=== PATIENT | female | born 1950 | race Caucasian/White ===

== ENCOUNTER 2018-02-05 19:28 | Emergency (ER) | payer MEDICARE ==
[2018-02-05 19:45] VITALS: BP 150/70; PULSE 84; RESP 17; TEMP 97.7; O2SAT 96
[2018-02-05] MEDS ORDERED: AMLO2.5T PO (20:11)
[2018-02-05] MEDS ORDERED: CETI-1 (20:11)
[2018-02-05] MEDS ORDERED: LEVO.075 PO (20:11)
--- NOTE | 2018-02-05 20:30 | PD ---
HPI Chief Complaint: Head Injury Time Seen by Provider: 20:26 Travel History International Travel<30 days: No Contact w/Intl Traveler<30days: No Traveled to known affect area: No History of Present Illness HPI The patient is a 67-year-old female that tripped and fell at 7:25 AM this morning and hit her right forehead. There was loss of consciousness and the patient has some nausea as well as a right frontal headache. She did not have the nausea with a headache before the fall. She denies any focal neurologic change. Her head was extended back with a fall and she has some mild neck pain on the upper part of her neck. She denies any radiation of pain, numbness or weakness down any of her extremities. She is not on any anticoagulant and her only medical problems are hypertension and hypothyroid. She recently had rods put in L4 and L5 by Dr. Hernandez on September 25. She does have some low back pain. PFSH Past Medical History Cancer: Yes (UTERINE) Cardiovascular Problems: Yes (HTN) Hypertension: Yes Immunizations Current: Yes Thyroid Disease: Yes Tetanus Vaccination: > 5 Years Influenza Vaccination: Yes ?: Not Past Surgical History Hysterectomy: Yes Oral Surgery: Yes Other Surgery: Yes ([facility] 09/25/17) Social History Alcohol Use: Yes (OCCASIONAL) Tobacco Use: No Substance Use: No Allergies-Medications (Allergen,Severity, Reaction): Coded Allergies: No Allergy Information Available (Unverified , 02/05/18) THINKS SHE MAY BE ALLERGIC TO SOME ANTIBIOTIC Reported Meds & Prescriptions Reported Meds & Active Scripts Active Reported Zyrtec (Cetirizine HCl) 10 Mg Tablet Amlodipine (Amlodipine Besylate) 2.5 Mg Tab 2.5 Mg PO DAILY Synthroid (Levothyroxine Sodium) 75 Mcg Tab 75 Mcg PO DAILY Review of Systems Except as stated in HPI: all other systems reviewed are Neg Physical Exam Narrative GENERAL: The patient is alert, oriented 3 in slight apparent distress with her mild headache. Her vital signs show blood pressure 150/70 but are otherwise normal. SKIN: Focused skin assessment warm/dry. There is a slight bruise without any associated bony deformity on the right forehead. HEAD: Raccoon eyes or dodge sign is present. There is no hemotympanum present. Normocephalic. EYES: Pupils equal and round. No scleral icterus. No injection or drainage. ENT: No nasal bleeding or discharge. Mucous membranes pink and moist. NECK: Trachea midline. No JVD. CARDIOVASCULAR: Regular rate and rhythm. No murmur appreciated. RESPIRATORY: No accessory muscle use. Clear to auscultation. Breath sounds equal bilaterally. GASTROINTESTINAL: Abdomen soft, non-tender, nondistended. Hepatic and splenic margins not palpable. MUSCULOSKELETAL: No obvious deformities. No clubbing. No cyanosis. No edema. NEUROLOGICAL: Awake and alert. No obvious cranial nerve deficits. Motor grossly within normal limits. Normal speech. PSYCHIATRIC: Appropriate mood and affect; insight and judgment normal. Data Data Last Documented VS Vital Signs Date Time Temp Pulse Resp B/P (MAP) Pulse Ox O2 Delivery O2 Flow Rate FiO2 02/05/18 20:12 Room Air 02/05/18 19:45 97.7 84 17 150/70 (96) [address] Brain W/O Iv Contrast(Rout) (02/05/18 20:30) Ct Cerv Spine W/O Contrast (02/05/18 20:30) Spine, Lumbar Comp W/Obliq (02/05/18 20:30) Ondansetron Odt (Zofran Odt) (02/05/18 20:45) Acetaminophen (Tylenol) (02/05/18 20:45) MDM Medical Decision Making Medical Screen Exam Complete: Yes Emergency Medical Condition: Yes Medical Record Reviewed: Yes Interpretation(s) The CT brain is negative noncontrast CT brain. The CT of the cervical spine shows no evidence of compression deformity or spondylolisthesis. The lumbar spine x-rays with obliques show no evidence of compression deformity or spondylolisthesis and intact hardware at L4-L5. Differential Diagnosis Concussion, skull fracture, intracranial bleed, fracture cervical spine, fracture lumbar spine, hardware disruption of lumbar spine, contusion forehead, cervical strain, lumbar strain Narrative Course The patient has a contusion of the forehead with mild lumbar strain and mild cervical strain. She also has a concussion. The patient lost consciousness, has some slight nausea and a slight headache. Impression: Concussion, contusion forehead, cervical strain, lumbar strain Plan: The patient be given Zofran ODT every 6 hours as needed for nausea and a 2 day work excuse. She should follow-up with her primary care physician next week. Diagnosis Primary Impression: Concussion Additional Impressions: Contusion of forehead Cervical strain Lumbar strain Additional Instructions: As we discussed, recovering from a concussion means to rest her brain. Avoid watching TV excessively, avoid excessive reading, avoid computer work if possible, avoid video games. Follow-up with your primary care physician next week. Take plain Tylenol for headache and the Zofran is 1 every 6 hours as needed for nausea. Med/Other Pt SpecificInfo: Prescription(s) given Scripts Ondansetron Odt (Zofran Odt) 4 Mg Tab 4 MG SL Q6HR Y for Nausea/Vomiting, #20 TAB 0 Refills Prov: Silverio Hatfield MD 02/05/18 Disposition: 01 DISCHARGE HOME Condition: Stable Silverio Hatfield MD Feb 05, 2018 20:30
[2018-02-05] MEDS ORDERED: ONDANSETRON ODT 4 MG TAB PO ONE (20:45)
[2018-02-05] MEDS ORDERED: ACETAMINOPHEN 325 MG TAB PO ONE (20:45)
--- NOTE | 2018-02-05 21:05 | RADRPT ---
EXAM DATE/TIME: 02/05/2018 20:45 [facility] COMPARISON: No previous studies available for comparison. INDICATIONS : Trauma, fall. Dizziness, cephalgia, nausea. RADIATION DOSE: 61.21 CTDIvol (mGy) MEDICAL HISTORY : None SURGICAL HISTORY : None. ENCOUNTER: Initial ACUITY: 1 day PAIN SCALE: 5/10 LOCATION: frontal cranial TECHNIQUE: Multiple contiguous axial images were obtained of the head. Using automated exposure control and adj ustment of the mA and/or kV according to patient size, radiation dose was kept as low as reasonably a chievable to obtain optimal diagnostic quality images. DICOM format image data is available electro nically for review and comparison. FINDINGS: CEREBRUM: The ventricles are normal for age. No evidence of midline shift, mass lesion, hemorrhage or acute in farction. No extra-axial fluid collections are seen. POSTERIOR FOSSA: The cerebellum and brainstem are intact. The 4th ventricle is midline. The cerebellopontine angle i s unremarkable. EXTRACRANIAL: The visualized portion of the orbits is intact. SKULL: The calvaria is intact. No evidence of skull fracture. CONCLUSION: 1. Negative noncontrast CT brain. Kevin West MD on February 05, 2018 at 21:03 Board Certified Radiologist. This report was verified electronically.
--- NOTE | 2018-02-05 21:07 | RADRPT ---
EXAM DATE/TIME: 02/05/2018 20:45 [facility] COMPARISON: No previous studies available for comparison. INDICATIONS : Trauma, fall. RADIATION DOSE: 25.01 CTDIvol (mGy) MEDICAL HISTORY : None SURGICAL HISTORY : None. ENCOUNTER: Initial ACUITY: 1 day PAIN SCALE: 4/10 LOCATION: neck TECHNIQUE: Volumetric scanning of the cervical spine was performed. Multiplanar reconstructions in the sagittal, coronal and oblique axial planes were performed. Using automated exposure control and adjustment o f the mA and/or kV according to patient size, radiation dose was kept as low as reasonably achievable to obtain optimal diagnostic quality images. DICOM format image data is available electronically f or review and comparison. FINDINGS: There is straightening of the upper cervical lordosis without evidence of compression deformity or sp ondylolisthesis. Mild discogenic degenerative changes are present C4-C6 with interspace narrowing. Moderate posterior osteophyte formation at C5-6 and anterior paravertebral ossification C3-4 through C7. The atlantoaxial articulation is intact with moderate degenerative changes.. The posterior kaw ents are in normal alignment without evidence of locked or perched facets. The spinous processes are intact. C2-C3: No fracture seen. The neural foramina are patent. C3-C4: No fracture seen. The neural foramina are patent. C4-C5: No fracture seen. The neural foramina are patent. C5-C6: No fracture seen. The neural foramina are patent. C6-C7: No fracture seen. The neural foramina are patent. C7-T1: No fracture seen. The neural foramina are patent. CONCLUSION: No evidence of compression deformity or spondylolisthesis. Kevin West MD on February 05, 2018 at 21:04 Board Certified Radiologist. This report was verified electronically.
--- NOTE | 2018-02-05 21:09 | RADRPT ---
EXAM DATE/TIME: 02/05/2018 20:52 [facility] COMPARISON: No previous studies available for comparison. INDICATIONS : Lower back pain post fall today MEDICAL HISTORY : None. SURGICAL HISTORY : Fusion, lumbar. ENCOUNTER: Initial ACUITY: 1 day PAIN SCORE: 8/10 LOCATION: Lumbar spine FINDINGS: Evidence of prior surgery to L5-S1 with bilateral transpedicular screws and interspace metallic devic e. No evidence of compression deformity or spondylolisthesis. The hardware appears be grossly intac t. Moderate discogenic degenerative changes present at L2-3. Pedicles are intact L1-L4. The arcuate lines of the sacrum are symmetric. Diffuse osteopenia. CONCLUSION: No evidence of compression deformity or spondylolisthesis. Intact hardware at L4-5. Kevin West MD on February 05, 2018 at 21:06 Board Certified Radiologist. This report was verified electronically.
[2018-02-05] MEDS ORDERED: ZOFR4TAB3 SL (21:29)
[2018-02-05 21:41] VITALS: BP 145/70
[2018-02-05 21:46] VITALS: RESP 16
== END 2018-02-05 21:46 | disposition home or self-care (01) ==
LOC: PHED 19:28
DX: S06.0X1A Concussion with loss of consciousness of 30 minutes or less, initial encounter (principal); S00.83XA Contusion of other part of head, initial encounter; S16.1XXA Strain of muscle, fascia and tendon at neck level, initial encounter; S39.012A Strain of muscle, fascia and tendon of lower back, initial encounter; W01.0XXA Fall on same level from slipping, tripping and stumbling without subsequent striking against object, initial encounter; I10 Essential (primary) hypertension; E07.9 Disorder of thyroid, unspecified; Z85.42 Personal history of malignant neoplasm of other parts of uterus
CPT/HCPCS: 70450; 72110; 72125; 99284